=== PATIENT | female | born 1985 | race Caucasian/White ===

== ENCOUNTER 2016-05-14 21:18 | Emergency (ER) | payer OTHER ==
[2016-05-14] MEDS ORDERED: PHENAZOPYRIDINE HCL 200 MG TAB PO ONE (21:44)
[2016-05-14 21:47] LABS: COLOR YELLOW; LEUKOCYTE ESTERASE,URINE TRACE (NEGATIVE); NITRITE,URINE NEGATIVE (NEGATIVE); PH,URINE 5.5 (5.0-7.5)
--- NOTE | 2016-05-14 21:48 | UCPHY ---
H & P Time Seen by Provider: 05/14/16 21:30 Patient Type: Established HPI/ROS: HPI Urinary tract infection symptoms. 31-year-old female by private vehicle. She complains of burning with urination , increased frequency with urination and some blood in her urine worsening since earlier today. No back pain. No abdominal pain. No fever. ROS: Constitutional: No fever, no chills. No weakness. Gastrointestinal: No abdominal pain, no vomiting, no diarrhea. Genitourinary: As above. Musculoskeletal: No back pain. Skin: No rashes. Neurological: No headache. Past medical history: No significant past medical history. Social history: Here by herself. Physical Exam: General Appearance: Alert, no distress. This patient is responding to questions appropriately and in full sentences. This patient appears well- hydrated and well-nourished. Eyes: Pupils equal and round no pallor or injection. No lid edema, erythema or injection. Gastrointestinal: Abdomen is soft and nontender, no masses, bowel sounds normal. No focal tenderness at McBurney's point. No Avalos sign. Neurological: Motor sensory function is grossly intact. Cranial nerves are normal. Gait is normal. Skin: Warm and dry, no rashes. Musculoskeletal: No CVA tenderness on palpation. Extremities are symmetrical. All joints range without pain or impingement. Psychiatric: No agitation. No depression. Database: EKG: Imaging: Procedures: Emergency department course: Urine sample obtained. Patient given 200 mg of Pyridium. Patient re-evaluated at 9:55 p.m.. Urinalysis indicates urinary tract infection. Her medication allergies reviewed. She was given 500 mg of Keflex in the emergency department. She feels comfortable going home and I feel she is safe for discharge. I will prescribe her Keflex as well as Pyridium for treatment of urinary tract infection. Return to emergency department precautions were discussed with her. Follow-up was reviewed. All of her questions were answered. She was discharged in good condition. Differential Diagnosis: The differential diagnosis on this patient includes but is not limited to urinary tract infection. Pyelonephritis, nephrolithiasis unlikely. This represents a partial list of diagnoses considered. These considerations are based on history, physical exam, past history, reassessment and diagnostic testing. Constitutional: Initial Vital Signs Temperature (C) 36.8 C 05/14/16 21:51 Heart Rate 100 05/14/16 21:51 Respiratory Rate 16 05/14/16 21:51 Blood Pressure 135/80 H 05/14/16 21:51 O2 Sat (%) 98 05/14/16 21:51 O2 Delivery Mode Room Air Allergies/Adverse Reactions: No Known Allergies Allergy (Unverified 05/14/16 21:50) Home Medications: Medication Instructions Recorded Brith Control Pills 05/14/16 Cephalexin [Keflex (*)] 500 mg PO Q6 6 Days 05/14/16 Phenazopyridine HCl [Pyridium] 200 mg PO TID #10 tab 05/14/16 Wellbutrin Sr 05/14/16 Medical Decision Making - Data Points Laboratory Results: 05/14/16 21:40 Urine Color YELLOW Urine Appearance CLOUDY Urine pH 5.5 (5.0-7.5) Ur Specific [place] 1.025 (1.002-1.030) Urine Protein 2+ H (NEGATIVE) Urine Ketones NEGATIVE (NEGATIVE) Urine Blood 3+ H (NEGATIVE) Urine Nitrate NEGATIVE (NEGATIVE) Urine Bilirubin NEGATIVE (NEGATIVE) Urine Urobilinogen 0.2 EU (0.2-1.0) Ur Leukocyte Esterase TRACE H (NEGATIVE) Urine RBC >182 H /hpf (0-3) Urine WBC 1-3 /hpf (0-3) Ur Epithelial Cells TRACE /lpf (NONE-1+) Urine Bacteria 1+ H /hpf (NONE SEEN) Urine Mucus 1+ /lpf (NONE-1+) Ur Culture Indicated? INDICATED H (NI) Urine Glucose NEGATIVE (NEGATIVE) Departure - Departure Disposition: Home, Routine, Self-Care Clinical Impression: Urinary tract infection Condition: Good Instructions: Urinary Tract Infection in Women (ED) Additional Instructions: Read and follow provided instructions. Follow-up with your primary care physician in 1-2 days for re-evaluation as needed. Take medication as prescribed. Return to the emergency department for worsening abdominal pain, fever, back pain, vomiting or other serious concerns. Referrals: NONE *PRIMARY CARE P,. [Primary Care Provider] - As per Instructions Prescriptions: Cephalexin [Keflex (*)] 500 mg PO Q6 6 Days Phenazopyridine HCl [Pyridium] 200 mg PO TID #10 tab - PQRS PQRS Measurement: Not applicable.
[2016-05-14 21:54] LABS: BACTERIA 1+ /hpf (NONE SEEN); MUCUS 1+ /lpf (NONE-1+); RBC,URINE >182 /hpf (0-3)
[2016-05-14 21:56] VITALS: BP 135/80; PULSE 100; RESP 16; TEMP 98.2; O2SAT 98
[2016-05-14] MEDS ORDERED: CEPHALEXIN 500MG PREPACK#4 BTL TAKEHOME ONE (21:59)
== END 2016-05-14 22:08 | disposition home or self-care (01) ==
LOC: CED 21:18
DX: N39.0 Urinary tract infection, site not specified (principal)
CPT/HCPCS: 81003-PO; 81015-PO; 99213-PO; G0463-PO